=== PATIENT | female | born 1985 | race Caucasian/White ===

== ENCOUNTER 2017-03-07 09:58 | Emergency (ER) | payer MEDICAID, OTHER ==
[~2017-03-07] VITALS: Ht 144.8 cm; Wt 55.5 kg
[2017-03-07 10:20] VITALS: BP 124/74
--- NOTE | 2017-03-07 10:34 | NUR ---
PATIENT PRESENT TO ER C/O VAGINAL BLEED x 8 DAYS. PT STATES BLEEDING STARTED SPOTTING AND GOT WORSE 2 DAYS AGO. PAIN 8/10 LOWER BACK. LMP 01/07/2017. PT STATES SHE 4 WEEKS AND 4 DAYS. PT STATES SHE WAS SEEN AT URGENT CARE FOR THE SPOTTING 2 DAYS AGO.PT ALSO STATES SHE HAS LOWER ABDOMINAL PAIN;MEDS: AND ABX FOR UTI . DENIES N/V/D; SKIN IS PINK/WARM/DRY; AAOX4 WITH EVEN AND STEADY GAIT; LUNGS CLEAR BL; HR EVEN AND REGULAR; PT DENIES ANY FEVER, CP, SOB, OR COUGH AT THIS TIME; PATIENT STATES PAIN OF 8/10 AT THIS TIME;PATIENT POSITIONED FOR COMFORT; HOB ELEVATED; BEDRAILS UP X2; BED DOWN. ER MD MADE AWARE OF PT STATUS.
--- NOTE | 2017-03-07 11:29 | NUR ---
US AT BEDSIDE.
[2017-03-07 11:42] LABS: BASOPHILS # (AUTO) 0.2 K/uL (0.00-0.22); BASOPHILS % (AUTO) 2.9 % (0.0-2.0); EOSINOPHILS # (AUTO) 0.1 K/uL (0-0.4); EOSINOPHILS % (AUTO) 0.8 % (0.0-4.0); HEMATOCRIT 38.3 % (36-48); HEMOGLOBIN 12.6 g/dL (12.0-16.0); LYMPHOCYTES # (AUTO) 1.7 K/uL (2.5-16.5); LYMPHOCYTES % (AUTO) 21.2 % (20.5-51.1); MEAN CORPUSCULAR HEMOGLOBIN 30 pg (27-31); MEAN CORPUSCULAR HGB CONC 33 g/dL (33-37); MEAN CORPUSCULAR VOLUME 90 fL (80-94); MONOCYTES # (AUTO) 0.6 K/uL (0.8-1.0); MONOCYTES % (AUTO) 7.3 % (1.7-9.3); NEUTROPHILS # (AUTO) 5.3 K/uL (1.8-7.7); NEUTROPHILS % (AUTO) 67.8 % (42.2-75.2); PLATELET COUNT (AUTO) 249 K/uL (140-450); RED BLOOD CELL COUNT(AUTO) 4.28 MIL/uL (4.20-5.40); RED CELL DISTRIBUTION WIDTH 13.3 % (11.6-13.7); WHITE BLOOD COUNT (AUTO) 7.9 K/uL (4.8-10.8)
[2017-03-07 11:55] LABS: ANION GAP 12.5 (8-16); CARBON DIOXIDE 26.2 mmol/L (21-32); CREATININE 0.7 mg/dL (0.6-1.3); POTASSIUM 3.7 mmol/L (3.5-5.1)
[2017-03-07 11:57] LABS: PROTHROMBIN TIME 10.3 secs (10.8-13.4)
[2017-03-07 12:09] LABS: ALBUMIN 3.6 g/dL (3.4-5.0); THYROID STIMULATING HORMONE 1.52 uIU/mL (0.34-3.74); TOTAL BILIRUBIN 0.4 mg/dL (0.0-1.0)
--- NOTE | 2017-03-07 12:55 | NUR ---
PT RESTING ON BED;NO ACUTE DISTRESS NOTED;WILL CONTINUE TO MONITOR PT.
[2017-03-07 13:40] VITALS: BP 105/42
--- NOTE | 2017-03-07 13:40 | NUR ---
Patient discharged with v/s stable. Written and verbal after care instructions given and explained. Patient verbalized understanding. Ambulatory with steady gait. All questions addressed prior to discharge. Advised to follow up with PMD/OB.
== END 2017-03-07 13:40 | disposition home or self-care (01) ==
LOC: MED 09:58
DX: O20.0 Threatened abortion (principal); Z3A.01 Less than 8 weeks gestation of pregnancy
CPT/HCPCS: 36415; 76801; 76817; 80053; 81002; 81025; 84443; 84702; 85025; 85610; 85730; 86900; 86901; 99285; Q0092

== ENCOUNTER 2017-09-27 08:39 | Emergency (ER) | payer MEDICAID ==
[~2017-09-27] VITALS: Ht 144.8 cm; Wt 55.8 kg
[2017-09-27 08:45] VITALS: BP 117/82
[2017-09-27 09:50] LABS: BILIRUBIN,URINE NEGATIVE (NEGATIVE); BLOOD, URINE 1+ (NEGATIVE); COLOR,URINE YELLOW (YELLOW); LEUKOCYTE ESTERASE ,URINE NEGATIVE (NEGATIVE); NITRITE, URINE NEGATIVE (NEGATIVE); PH,URINE 7.5 (5.0-9.0); UGLUCOSE NEGATIVE (NEGATIVE)
[2017-09-27 10:01] LABS: APPEARANCE,URINE SLIGHTLY HAZY (CLEAR)
[2017-09-27 10:02] LABS: RBC,URINE 0-5 (RARE) /HPF (0-5); WBC,URINE 0-5 (RARE) /HPF (0-5)
[2017-09-27 10:24] LABS: HEMATOCRIT 38.3 % (36-48); HEMOGLOBIN 12.6 g/dL (12.0-16.0); MEAN CORPUSCULAR HGB CONC 33 g/dL (33-37)
[2017-09-27 10:27] LABS: MEAN CORPUSCULAR HEMOGLOBIN 30 pg (27-31); MEAN CORPUSCULAR VOLUME 92.1 fL (80-94); PLATELET COUNT (AUTO) 245 K/uL (140-450); RED BLOOD CELL COUNT(AUTO) 4.16 MIL/uL (4.20-5.40); RED CELL DISTRIBUTION WIDTH 14.5 % (11.6-13.7); WHITE BLOOD COUNT (AUTO) 5.3 K/uL (4.8-10.8)
[2017-09-27 10:41] LABS: EOSINOPHILS % (MANUAL) 2 % (0-4); LYMPHOCYTES % (MANUAL) 40 % (20-46); MONOCYTES % (MANUAL) 5 % (5-12)
[2017-09-27 12:36] VITALS: BP 114/72
[2017-09-29 06:19] LABS: CHLAMYDIA TRACHOMATIS AMP DNA Negative (Negative)
== END 2017-09-27 12:35 | disposition home or self-care (01) ==
LOC: MED 08:39
DX: O20.9 Hemorrhage in early pregnancy, unspecified (principal)
CPT/HCPCS: 36415; 76801; 81001; 81025; 84702; 85025; 87210; 87491; 99285; Q0092

== ENCOUNTER 2017-10-02 21:53 | Inpatient (IN) | payer MEDICAID, OTHER ==
[~2017-10-02] VITALS: Ht 144.8 cm; Wt 57.6 kg
[2017-10-02 21:58] VITALS: BP 123/77
--- NOTE | 2017-10-02 22:05 | NUR ---
PATIENT PRESENTS TO ED WITH ABDOMINAL PAIN AND VAGINAL BLEEDING X2 DAYS. PT STATES SHE IS 2 WEEKS . C/O BURNING PAIN WITH URINATION AND BLEEDING WHEN SHE URINATES. HEAVY BLEEDING NOTED EVERY TIME SHE USES THE RESTROOM. DENIES N/V/D; SKIN IS PINK/WARM/DRY; AAOX4 WITH EVEN AND STEADY GAIT; LUNGS CLEAR BL; HR EVEN AND REGULAR; PT DENIES ANY FEVER, CP, SOB, OR COUGH AT THIS TIME; VSS; PATIENT POSITIONED FOR COMFORT; HOB ELEVATED; BEDRAILS UP X1; BED DOWN. ER MD MADE AWARE OF PT STATUS.
[2017-10-02] MEDS ORDERED: MORPHINE SULFATE 4 MG/ML SYR IVP ONE (22:20)
[2017-10-02] MEDS ORDERED: NACL 0.9% 1,000 ML IV ONE (22:20)
[2017-10-02 22:48] LABS: MEAN CORPUSCULAR HGB CONC 33 g/dL (33-37)
[2017-10-02 22:52] LABS: BASOPHILS % (AUTO) 0.4 % (0.0-2.0); EOSINOPHILS # (AUTO) 0.1 K/uL (0-0.4); EOSINOPHILS % (AUTO) 0.5 % (0.0-4.0); HEMATOCRIT 33.5 % (36-48); LYMPHOCYTES # (AUTO) 3.7 K/uL (2.5-16.5); LYMPHOCYTES % (AUTO) 27.9 % (20.5-51.1); MEAN CORPUSCULAR HEMOGLOBIN 30 pg (27-31); MEAN CORPUSCULAR VOLUME 90.5 fL (80-94); MONOCYTES # (AUTO) 0.8 K/uL (0.8-1.0); MONOCYTES % (AUTO) 6.3 % (1.7-9.3); NEUTROPHILS # (AUTO) 8.7 K/uL (1.8-7.7); NEUTROPHILS % (AUTO) 64.9 % (42.2-75.2); PLATELET COUNT (AUTO) 277 K/uL (140-450); RED CELL DISTRIBUTION WIDTH 15.2 % (11.6-13.7); WHITE BLOOD COUNT (AUTO) 13.4 K/uL (4.8-10.8)
[2017-10-02 23:01] LABS: ALBUMIN 3.5 g/dL (3.4-5.0); ANION GAP 12.7 (8-16); CARBON DIOXIDE 27.8 mmol/L (21-32); CREATININE 0.7 mg/dL (0.6-1.3); POTASSIUM 3.5 mmol/L (3.5-5.1); TOTAL BILIRUBIN 0.3 mg/dL (0.0-1.0)
[2017-10-02 23:52] LABS: APPEARANCE,URINE SL CLOUDY (CLEAR); BILIRUBIN,URINE NEGATIVE (NEGATIVE); BLOOD, URINE 3+ (NEGATIVE); COLOR,URINE YELLOW (YELLOW); LEUKOCYTE ESTERASE ,URINE NEGATIVE (NEGATIVE); NITRITE, URINE NEGATIVE (NEGATIVE); UGLUCOSE NEGATIVE (NEGATIVE)
--- NOTE | 2017-10-02 23:55 | NUR ---
Pt refused Morphine for pain d/t how it makes her feel. Dr Brownlee notified. Pt states she will notify staff when whe feels she is need for pain intervention. Resting comfortably in bed at this time. VSS. Morphine 4mg/1ml returned to [facility]. Continue to monitor.
[2017-10-03 00:03] LABS: RBC,URINE 3-10 (FEW) /HPF (0-5); WBC,URINE 0-5 (RARE) /HPF (0-5)
--- NOTE | 2017-10-03 01:50 | NUR ---
PT ARRIVED AT UNIT VIA BED, PT AMBULATED TO BED, NO DISTRESS NOTED, TOLERATED WELL, RECEIVED BEDSIDE REPORT FROM CRISTA BROWN, IV TO R AC 18G RUNNING NS @ 100ML/HR, INFUSING WELL, PT ON ROOM AIR NO SOB, FAMILY AT BEDSIDE, ORIENT PT TO ROOM, CALL LIGHT AND PHONE, MRSA SWAB TAKEN, INITIAL ASSESSMENT DONE, ALL SAFETY PRECAUTION MET, WILL CONTINUE TO MONITOR.
--- NOTE | 2017-10-03 01:50 | NUR ---
Report given and care transfered to Hartley RN room 106B. Transported via gurney with vss.
[2017-10-03 02:00] VITALS: BP 107/57
[2017-10-03] MEDS ORDERED: KETOROLAC 30 MG/ML VIAL IM SCH (02:30)
[2017-10-03] MEDS: LACTATED RINGERS 1,000 ML IV SCH ×3 (02:34→18:10)
--- NOTE | 2017-10-03 03:01 | NUR ---
GOMEZ CATH INSERTED PER MD ORDER, PT TOLERATED WELL, NO DISTRESS NOTED, CALL LIGHT WITHIN REACH, WILL CONTINUE TO MONITOR.
--- NOTE | 2017-10-03 04:10 | NUR ---
CHECKED ON PT, PT SLEEPING, NO DISTRESS NOTED, CALL LIGHT WITHIN REACH, WILL CONTINUE TO MONITOR.
[2017-10-03 07:20] LABS: BASOPHILS % (AUTO) 0.3 % (0.0-2.0); EOSINOPHILS % (AUTO) 0.5 % (0.0-4.0); HEMATOCRIT 28.2 % (36-48); HEMOGLOBIN 9.5 g/dL (12.0-16.0); LYMPHOCYTES # (AUTO) 2.5 K/uL (2.5-16.5); LYMPHOCYTES % (AUTO) 31.8 % (20.5-51.1); MEAN CORPUSCULAR HEMOGLOBIN 31 pg (27-31); MEAN CORPUSCULAR HGB CONC 34 g/dL (33-37); MEAN CORPUSCULAR VOLUME 90.6 fL (80-94); MONOCYTES # (AUTO) 0.5 K/uL (0.8-1.0); MONOCYTES % (AUTO) 5.9 % (1.7-9.3); NEUTROPHILS # (AUTO) 4.9 K/uL (1.8-7.7); NEUTROPHILS % (AUTO) 61.5 % (42.2-75.2); PLATELET COUNT (AUTO) 220 K/uL (140-450); RED BLOOD CELL COUNT(AUTO) 3.11 MIL/uL (4.20-5.40); RED CELL DISTRIBUTION WIDTH 15.1 % (11.6-13.7)
--- NOTE | 2017-10-03 07:25 | NUR ---
ENDORSED PLAN OF CARE TO DAY SHIFT NURSE LEVON BROWN, PT STABLE, NO DISTRESS NOTED, CALL LIGHT WITHIN REACH.
--- NOTE | 2017-10-03 07:50 | NUR ---
PATIENT AWAKE, ALERT. RESPIRATION EVEN, UNLABOR ON ROOM AIR. SKIN DRY AND WARM. IV PATENT AND INTACT. COMPLAINED OF PELVIC PAIN 8/10, SHARP, NON RADIATING, WILL MEDICATE PER ORDER. GOMEZ IS DRAINING WELL. VS IS STABLE. PLAN OF CARE WAS DISCUSSED WITH PATIENT. BED AT LOW POSITION, SIDE RAILS UP. CALL LIGHT WITHIN REACH
[2017-10-03 08:00] VITALS: BP 95/51
--- NOTE | 2017-10-03 09:10 | NUR ---
PATIENT AWAKE, ALERT, STATED THAT SHE NO LONGER FEELS THE PELVIC PAIN, THAT THE PAIN SOMETIMES COMES AND GOES. WILL CONTINUE TO MONITOR. Addendum: 10/03/17 at 0911 by Roseanna Vega RN NO VAGINAL BLEEDING SEEN AT THIS TIME
--- NOTE | 2017-10-03 09:53 | NUR ---
PATIENT HAS BEEN SCREENED AND CATEGORIZED LOW NUTRITION RISK. PATIENT WILL BE SEEN WITHIN 7 DAYS OF ADMISSION. 10/09/[address]
--- NOTE | 2017-10-03 11:43 | NUR ---
CM NOTE CHART REVIEW DONE
--- NOTE | 2017-10-03 11:50 | NUR ---
CONSENT WAS SIGNED AT BEDSIDE, BY PATIENT. DR. ROBLERO WAS AT BEDSIDE. PATIENT VERBALIZED UNDERSTANDING RISKS AND BENEFITS.
--- NOTE | 2017-10-03 13:00 | NUR ---
PATIENT WAS TRANSFERRED TO OR FOR PROCEDURE. PATIENT IS STABLE AT THIS TIME
[2017-10-03] MEDS ORDERED: NEOSTIGMINE 1:1000 10 MG/10 ML VIAL ONE (15:00)
[2017-10-03] MEDS ORDERED: KETOROLAC 60 MG/2 ML VIAL IM ONE (15:00)
[2017-10-03] MEDS ORDERED: DESFLURANE 240 ML BTL INH ONE (15:00)
[2017-10-03] MEDS ORDERED: PROPOFOL 200 MG/20 ML VIAL IV ONE (15:00)
[2017-10-03] MEDS ORDERED: ONDANSETRON 4 MG/2 ML VIAL ONE (15:00)
[2017-10-03] MEDS ORDERED: SUCCINYLCHOLINE CHLORIDE 200 MG/10 ML VIAL IVP ONE (15:00)
[2017-10-03] MEDS ORDERED: ROCURONIUM 50 MG/5 ML VIAL IV ONE (15:00)
[2017-10-03] MEDS ORDERED: DEXAMETHASONE 4 MG/ML VIAL ONE (15:00)
[2017-10-03] MEDS ORDERED: GLYCOPYRROLATE 0.2 MG/ML VIAL ONE (15:00)
[2017-10-03] MEDS ORDERED: fentaNYL 0.05 MG/ML VIAL ONE (15:15)
[2017-10-03] MEDS ORDERED: MIDAZOLAM 2 MG/2 ML VIAL ONE (15:15)
[2017-10-03] MEDS ORDERED: MORPHINE SULFATE 4 MG/ML SYR ONE ×2 (15:15→18:31)
[2017-10-03] MEDS ORDERED: METOCLOPRAMIDE 10 MG/2 ML INJ VIAL IVP PRN (16:30)
[2017-10-03] MEDS ORDERED: MORPHINE SULFATE 2 MG/ML SYR IVP PRN (16:30)
[2017-10-03] MEDS ORDERED: MORPHINE SULFATE 4 MG/ML SYR IVP PRN ×3 (16:30→18:25)
[2017-10-03] MEDS ORDERED: MIDAZOLAM 2 MG/2 ML VIAL IV ONE (16:30)
--- NOTE | 2017-10-03 19:10 | NUR ---
PATIENT WAS TRANSFERRED BACK FROM OR. REPORT WAS GIVEN AT BEDSIDE. VS IS TAKEN. IV MED WAS HUNG PER ORDER.
[2017-10-03] MEDS: OXYTOCIN 20 UNITS in LACTATED RINGERS 1,000 ML IV SCH (19:20)
--- NOTE | 2017-10-03 19:21 | NUR ---
ENDORSEMENT GIVEN TO THE ADMINISTRATOR PESTICIDE NURSE. PATIENT IS STABLE AT THIS TIME
--- NOTE | 2017-10-03 19:22 | NUR ---
RECEIVED REPORT FROM DAY SHIFT NURSE ALEC-STEPHANIE. PT RESTING IN BED. RETURNED VIA GURNEY FROM OR. FAMILY AT BEDSIDE. AOX4, ON ROOM AIR WITH IV RIGHT AC #18G. RUPAL DRAIN ON BOTH SIDES, DRESSINGS IN PLACE. GOMEZ CATHETER IN PLACE. DISCUSSED PLAN OF CARE AND PT VERBALIZED UNDERSTANDING. WHITE BOARD UPDATED. BED IN LOWEST POSITION, BED BREAKS LOCKED. BED SIDE TABLE AND CALL LIGHT WITHIN REACH. WILL CONTINUE TO MONITOR.
--- NOTE | 2017-10-03 20:00 | NUR ---
VITAL SIGNS STABLE. EDUCATED PT ON PITOCIN. PT REQUESTING PAIN MEDICATION 11/20.
[2017-10-03] MEDS: KETOROLAC 30 MG/ML VIAL IVP PRN (20:08)
--- NOTE | 2017-10-03 22:00 | NUR ---
PT SLEEPING AT THIS TIME. AT BEDSIDE. WILL CONTINUE TO MONITOR.
[2017-10-04] VITALS: BP 102/60
--- NOTE | 2017-10-04 | NUR ---
PT SLEEPING AT THIS TIME. WILL CONTINUE TO MONITOR.
--- NOTE | 2017-10-04 02:00 | NUR ---
NEW IV STARTED ON RIGHT AC #22G BY CHARGE NURSE MEGAN. PT TOLERATED WELL. IV RIGHT AC D/C BECAUSE PT WAS EXPERIENCING PAIN AND NUMBNESS. WILL CONTINUE TO MONITOR.
[2017-10-04] MEDS: LACTATED RINGERS 1,000 ML IV SCH ×4 (02:10→22:00)
[2017-10-04] MEDS: OXYTOCIN 20 UNITS in LACTATED RINGERS 1,000 ML IV SCH ×3 (02:24→10:25)
--- NOTE | 2017-10-04 04:00 | NUR ---
PT SLEEPING AT THIS TIME. NO S/S OF RESPIRATORY DISTRESS OR DISCOMFORT AT THIS TIME. WILL CONTINUE TO MONITOR.
--- NOTE | 2017-10-04 06:00 | NUR ---
PT CONTINUES TO SLEEP. WILL CONTINUE TO MONITOR.
--- NOTE | 2017-10-04 07:10 | NUR ---
ENDORSED PT CARE TO DAY SHIFT NURSE MAXIMO FOR CONTINUITY OF CARE. PT IN STABLE CONDITION AT THIS TIME.
--- NOTE | 2017-10-04 07:11 | NUR ---
RECEIVED REPORT FROM UTILITY AIRCREWMAN NURSE. PATIENT LYING DOWN IN BED COMFORTABLY. NO DISTRESS NOTED. COMPLAINTS OF 6/10 INCISION PAIN, WILL MEDICATE WITH PAIN MEDICATION PER ORDERS. RESPIRATIONS EVEN, UNLABORED, ON ROOM AIR. AAOX4, CALM, COOPERATIVE, SKIN COLOR APPROPRIATE TO ETHNICITY, WARM TO TOUCH. HAS RUPAL DRAINS ON LEFT AND RIGHT SIDE OF ABDOMEN THAT IS DRAINING SEROSANGUINOUS FLUID. HAS SURGICAL WOUND ON ABDOMINAL AREA S/P EXPLORATORY LAPAROTOMY/ECTOPIC EVACUATION, DRESSING IS DRY AND INTACT. LUNGS CTA ON ALL LOBES. IV SITE INTACT, PATENT AND INFUSING IVF PER ORDERS. GOMEZ CATHETER IN PLACE, DRAINING CLEAR YELLOW URINE. REVIEWED PLAN OF CARE WITH PATIENT. PATIENT VERBALIZED UNDERSTANDING. SAFETY MEASURES IN PLACE, CALL LIGHT WITHIN REACH. WILL CONTINUE TO MONITOR.
[2017-10-04 07:59] LABS: BASOPHILS % (AUTO) 0.2 % (0.0-2.0); EOSINOPHILS % (AUTO) 0.1 % (0.0-4.0); HEMATOCRIT 26.8 % (36-48); HEMOGLOBIN 9.1 g/dL (12.0-16.0); LYMPHOCYTES # (AUTO) 1.8 K/uL (2.5-16.5); LYMPHOCYTES % (AUTO) 17.1 % (20.5-51.1); MEAN CORPUSCULAR HEMOGLOBIN 31 pg (27-31); MEAN CORPUSCULAR HGB CONC 34 g/dL (33-37); MEAN CORPUSCULAR VOLUME 90.5 fL (80-94); MONOCYTES # (AUTO) 0.7 K/uL (0.8-1.0); MONOCYTES % (AUTO) 6.3 % (1.7-9.3); NEUTROPHILS # (AUTO) 7.9 K/uL (1.8-7.7); NEUTROPHILS % (AUTO) 76.3 % (42.2-75.2); PLATELET COUNT (AUTO) 215 K/uL (140-450); RED BLOOD CELL COUNT(AUTO) 2.97 MIL/uL (4.20-5.40); RED CELL DISTRIBUTION WIDTH 15.4 % (11.6-13.7); WHITE BLOOD COUNT (AUTO) 10.3 K/uL (4.8-10.8)
[2017-10-04 08:00] VITALS: BP 97/55
[2017-10-04] MEDS: KETOROLAC 30 MG/ML VIAL IVP PRN ×3 (08:26→23:51)
--- NOTE | 2017-10-04 08:30 | NUR ---
PATIENT COMPLAINTS OF PAIN ON SURGICAL SITES, TORADOL GIVEN PER ORDERS. SAFETY MEASURES IN PLACE, CALL LIGHT WITHIN REACH. WILL CONTINUE TO MONITOR.
--- NOTE | 2017-10-04 10:10 | NUR ---
PATIENT LYING IN BED SLEEPING, AROUSABLE BY VOICE. GOMEZ CATHETER REMOVED DUE TO 1800 ML OUTPUT OF URINE OVERNIGHT AND ALLOWED TO PULL OUT GOMEZ CATHETER IF OUTPUT >600 ML PER MD ORDERS. PATIENT TOLERATED PROCEDURE WELL. PAIN WITHIN TOLERABLE AT THIS TIME. SAFETY MEASURES IN PLACE, CALL LIGHT WITHIN REACH. WILL CONTINUE TO MONITOR.
--- NOTE | 2017-10-04 14:46 | NUR ---
PATIENT WANTED TO AMBULATE TO BATHROOM. ASSISTED PATIENT AMBULATE FROM BED TO BATHROOM WITH ASSISTING ALSO. PATIENT ABLE TO AMBULATE FROM BED TO BATHROOM SAFELY. FROM BATHROOM AND BACK TO BED. PATIENT FELT DIZZINESS AND HAD TO FALL TO HER KNEES SLOWLY WITH ASSISTING HER IN BATHROOM WHEN PATIENT TRIED TO GET UP FROM TOILET SEAT. INSTRUCTED PATIENT TO TAKE A REST ON THE TOILET SEAT AND TAKE DEEP BREATHS. PATIENT THEN ABLE TO GET UP FROM BATHROOM AND BACK TO BED WITH 2 PERSON ASSIST. THERE WAS A MILD BLOOD CLOT IN URINE IN TOILET. SAFETY MEASURES IN PLACE, CALL LIGHT WITHIN REACH. IVF RUNNING PER ORDERS. WILL CONTINUE TO MONITOR.
[2017-10-04 16:00] VITALS: BP 104/61
--- NOTE | 2017-10-04 16:03 | NUR ---
PATIENT COMPLAINTS OF 6/10 ABDOMINAL INCISION PAIN, MEDICATED WITH TORADOL PER ORDERS. PATIENT'S FAMILY MEMBERS AT BEDSIDE. NO DISTRESS NOTED. SAFETY MEASURES IN PLACE, CALL LIGHT WITHIN REACH. WILL CONTINUE TO MONITOR.
--- NOTE | 2017-10-04 17:00 | NUR ---
PATIENT AMBULATED TO BATHROOM AND BACK TO BED WITH ASSISTANCE OF NURSE AND . NO BLOOD CLOTS NOTED IN URINE. SAFETY MEASURES IN PLACE, CALL LIGHT WITHIN REACH. WILL CONTINUE TO MONITOR.
--- NOTE | 2017-10-04 17:57 | NUR ---
PATIENT SITTING IN BED WITH DINNER TRAY AT BEDSIDE. NO DISTRESS NOTED. PAIN WITHIN TOLERABLE. DENIES ANY NAUSEA/VOMITING. CONTINUING TO PASS GAS AND BURP. WILL CONTINUE TO MONITOR.
--- NOTE | 2017-10-04 18:39 | NUR ---
RUPAL DRAIN A (RIGHT SIDE): 5 ML SEROSANGUINOUS, B (LEFT SIDE): 20 ML SEROSANGUINOUS. PATIENT TOLERATED PROCEDURE WELL. WILL CONTINUE TO MONITOR.
--- NOTE | 2017-10-04 19:25 | NUR ---
GAVE REPORT TO INTERFACE CONTROL OFFICER NURSE FOR CONTINUITY OF CARE. PATIENT IN STABLE CONDITION.
--- NOTE | 2017-10-04 21:04 | NUR ---
DR. ROBLERO SAW PT. USED METAL NECKLACE TO HANG RUPAL DRAINS AND UNDERWEAR TO SECURE RUPAL DRAINS. PT STRUGGLED TO HELP HERSELF UP AND IN BED. DR. ROBLERO SUGGESTS PT NEEDS TO STAY IN HOSPITAL AND WILL ASSESS HER TOMORROW. PT NEEDS TEACHING ON HOW TO DRAIN RUPAL HERSELF. EDUCATED PT ON HOW TO USE INCENTIVE SPIROMETER REACHING 1500ML. EXPLAINED SHE NEEDS TO USE IT EVERY HOUR. WILL CONTINUE TO MONITOR.
--- NOTE | 2017-10-04 23:40 | NUR ---
ASSISTED PT TO THE BATHROOM. PT URINATED, YELLOW, CLEAR WITH NORMAL SMELL. PT STATED PAIN 6/10 WANTING PAIN MEDICATION. WILL MEDICATE.
[2017-10-05] VITALS: BP 108/57
--- NOTE | 2017-10-05 00:49 | NUR ---
PT SLEEPING AT THIS TIME. NO S/S OF RESPIRATORY DISTRESS OR DISCOMFORT NOTED AT THIS TIME. WILL CONTINUE TO MONITOR.
--- NOTE | 2017-10-05 02:00 | NUR ---
PT SLEEPING AT THIS TIME. WILL CONTINUE TO MONITOR.
--- NOTE | 2017-10-05 04:00 | NUR ---
PT CONTINUES TO SLEEP AT THIS TIME. WILL CONTINUE TO MONITOR.
[2017-10-05] MEDS: LACTATED RINGERS 1,000 ML IV SCH ×2 (06:00→18:46)
--- NOTE | 2017-10-05 06:00 | NUR ---
PT CONTINUES TO SLEEP AT THIS TIME. WILL CONTINUE TO MONITOR.
--- NOTE | 2017-10-05 07:10 | NUR ---
ENDORSED PT CARE TO DAY SHIFT NURSE ARNULFO FOR CONTINUITY OF CARE. PT IN STABLE CONDITION AT THIS TIME.
--- NOTE | 2017-10-05 07:10 | NUR ---
RECEIVED REPORT FROM NIGHTSHIFT NURSE AT BEDSIDE. PATIENT ALERT AND ORIENTED X4. PATIENT DOES NOT COMPLAIN OF PAIN. PATIENT'S DRESSING ON ABDOMEN IS DRY AND INTACT. REJI ODONNELL TUBE A AND B HAVE BEEN EMPTIED. NOTED HOW MUCH DRAINAGE NIGHTSHIFT NURSE EMPTIED. PATIENT SHOWS NO SIGNS OF RESPIRATORY DISTRESS OR RESPIRATORY DEPRESSION. PATIENT IV SITE ON LEFT AC 22 G RUNNING LACTATED RINGERS AT 125 ML/HR. PUT CALL LIGHT WITHIN REACH OF PATIENT. INSTRUCTED PATIENT TO CALL IF SHE NEEDS HELP AMBULATING. UPDATED BOARD IN PATIENT'S ROOM. WILL CONTINUE TO MONITOR PATIENT.
[2017-10-05 08:00] VITALS: BP 98/54
[2017-10-05] MEDS ORDERED: BISACODYL 5 MG TABEC PO PRN (08:00)
[2017-10-05] MEDS ORDERED: SODIUM PHOSPHATE 118 ML ENEM RC PRN (08:00)
[2017-10-05] MEDS ORDERED: DOCUSATE SODIUM 100 MG GELCAP PO PRN (08:00)
[2017-10-05] MEDS ORDERED: SIMETHICONE 80 MG TAB.CHEW PO PRN (08:00)
--- NOTE | 2017-10-05 09:34 | NUR ---
PATIENT AWAKE AT THIS TIME IN HIGH [place] POSITION. PATIENT'S FAMILY MEMBER AT BEDSIDE. PATIENT DOES NOT COMPLAIN OF ANY PAIN OR ANY RESPIRATORY DISTRESS. NO RESPIRATORY DEPRESSION NOTED. WILL CONTINUE TO MONITOR PATIENT.
--- NOTE | 2017-10-05 11:30 | NUR ---
PATIENT RESTING AT THIS TIME. NO COMPLAINTS OF PAIN. WILL CONTINUE TO MONITOR PATIENT.
[2017-10-05] MEDS: oxyCODONE/APAP 5/325 MG 1 TAB TAB PO PRN ×2 (12:24→19:53)
--- NOTE | 2017-10-05 13:07 | NUR ---
PATIENT SITTING ON SIDE OF BED. PATIENT FAMILY MEMBER AT BEDSIDE. PATIENT DOES NOT COMPLAIN OF PAIN AT THIS TIME. PATIENT REQUESTED SOUP FOR DINNER. CALLED [facility] TO REQUEST PATIENT'S FOOD. WILL CONTINUE TO MONITOR PATIENT.
--- NOTE | 2017-10-05 14:55 | NUR ---
PATIENT ASLEEP AT THIS TIME. NO SIGNS OF PAIN. NO DISTRESS NOTED. WILL CONTINUE TO MONITOR PATIENT.
[2017-10-05 16:33] VITALS: BP 97/57
--- NOTE | 2017-10-05 16:35 | NUR ---
PATIENT FAMILY AT BEDSIDE. NO COMPLAINTS OF PAIN. PATIENT SHOWS NO SIGNS OF RESPIRATORY DISTRESS OR RESPIRATORY DEPRESSION. WILL CONTINUE TO MONITOR PATIENT.
--- NOTE | 2017-10-05 19:30 | NUR ---
GAVE REPORT TO NIGHTSHIFT NURSE AT BEDSIDE. PATIENT IN STABLE CONDITION
--- NOTE | 2017-10-05 19:31 | NUR ---
RECEIVED BEDSIDE REPORT FROM DAY SHIFT NURSE TOMAS RN, PT STABLE, NO DISTRESS NOTED, IV TO LAC 22G RUNNING LR @ 125ML/HR, INFUSING WELL, PT ON ROOM AIR NO SOB, DRESSING INTACT, RUPAL DRAINS INTACT, INITIAL ASSESSMENT DONE, ALL SAFETY PRECAUTION MET, WILL CONTINUE TO MONITOR.
--- NOTE | 2017-10-05 19:53 | NUR ---
PT C/O PAIN 12/20, PERCOCET GIVEN, PT TOLERATED WELL, NO DISTRESS NOTED, CALL LIGHT WITHIN REACH, WILL CONTINUE TO MONITOR.
--- NOTE | 2017-10-05 20:10 | NUR ---
DR. ROBLERO AT BEDSIDE, STATED PT SHOULD NO LONGER BE ON FLUIDS, WILL D/C FLUIDS, STATED TO ADMINISTER ENEMA FOR PT, WILL CONTINUE WITH DR. SAGE. PT STABLE, NO DISTRESS NOTED, BY BEDSIDE, WILL CONTINUE TO MONITOR.
--- NOTE | 2017-10-05 22:26 | NUR ---
FLEET ENEMA ADMINISTERED TO PT, PT THEN IMMEDIATELY WENT TO RESTROOM AND DID A BM, PT WENT BACK TO BED, NO DISTRESS NOTED, STABLE, CALL LIGHT WITHIN REACH, WILL CONTINUE TO MONITOR.
[2017-10-05] MEDS: IBUPROFEN 600 MG TAB PO PRN (23:56)
[2017-10-06] VITALS: BP 109/70
--- NOTE | 2017-10-06 00:02 | NUR ---
CHECKED ON PT, PT SLEEPING, NO DISTRESS NOTED, CALL LIGHT WITHIN REACH, WILL CONTINUE TO MONITOR.
--- NOTE | 2017-10-06 03:21 | NUR ---
CHECKED ON PT, PT SLEEPING, NO DISTRESS NOTED, CALL LIGHT WITHIN REACH, WILL CONTINUE TO MONITOR.
--- NOTE | 2017-10-06 07:18 | NUR ---
ENDORSED PLAN OF CARE TO DAY SHIFT NURSE ALMAZ BROWN, PT STABLE, NO DISTRESS NOTED, CALL LIGHT WITHIN REACH.
--- NOTE | 2017-10-06 07:21 | NUR ---
ENDALICE PLAN OF CARE TO DAY SHIFT NURSE CHERRY BROWN, PT STABLE, NO DISTRESS NOTED, CALL LIGHT WITHIN REACH. Addendum: 10/06/17 at 0736 by Corrine Ortega RN [facility] PT
--- NOTE | 2017-10-06 07:22 | NUR ---
RECEIVED REPORT FROM STEAMER BLOCKER NURSE, PT IS AAOX4, AMBULATES WITH ASSIST, PT HAS IV ON HER LEFT FA, PATENT, INTACT, FLUSHING WELL, NO S/S OF RESPIRATORY DISTRESS OR DISCOMFORT NOTED, PT IS S/P EXP. LAP ON 10/04/17, PT HAS RUPAL DRAIN ON LEFT AND RIGHT SIDE OF ABDOMEN, A DRAIN HAD MINIMAL SEROSANGUINEOUS DRAINAGE, B DRAIN HAD 5 ML SEROSANGUINEOUS DRAINAGE. DISCUSSED PLAN OF CARE WITH PT, PT VERBALIZED UNDERSTANDING, SAFETY/FALL PRECAUTIONS ARE IN PLACE, CALL LIGHT WITHIN REACH, WILL CONTINUE TO MONITOR.
[2017-10-06 08:00] VITALS: BP 99/63
[2017-10-06] MEDS: IBUPROFEN 600 MG TAB PO PRN (08:33)
--- NOTE | 2017-10-06 09:00 | NUR ---
PATIENT IS RESTING IN BED, CALL LIGHT WITHIN REACH.
--- NOTE | 2017-10-06 10:30 | NUR ---
DR. ROBLERO HERE TO SEE PATIENT. PER DR. ROBLERO DO NOT REMOVE ABDOMINAL DRESSING TODAY, HE WILL REMOVED THE DRESSING ONCE PT FOLLOWS UP IN HIS OFFICE ON OCTOBER 11. PT VERBALIZED UNDERSTANDING. PATIENT'S FAMILY IS AT BEDSIDE.
--- NOTE | 2017-10-06 11:15 | NUR ---
DISCHARGE INSTRUCTIONS GIVEN, PATIENT TEACHING GIVEN ON HOW TO EMPTY RUPAL DRAIN. IV REMOVED, CATHETER TIP INTACT, ID WRIST BAND REMOVED.
--- NOTE | 2017-10-06 11:40 | NUR ---
PT STABLE UPON DISCHARGE ACCOMPANIED BY HER .
== END 2017-10-06 11:40 | disposition home or self-care (01) | DRG 545 ==
LOC: MED 21:53 → MTU 10-03 01:09
PROVIDERS: ADMIT Obstetrics & Gynecology; ATTEND Obstetrics & Gynecology
PROC: 0DNW0ZZ Release Peritoneum, Open Approach (ICD-10-PCS; 2017-10-03)
PROC: 10T20ZZ Resection of Products of Conception, Ectopic, Open Approach (ICD-10-PCS; principal; 2017-10-03 13:00)
DX: O00.00 Abdominal pregnancy without intrauterine pregnancy (principal); D62 Acute posthemorrhagic anemia; Z98.891 History of uterine scar from previous surgery
CPT/HCPCS: 36415; 76801; 80053; 81001; 84702; 85025; 86900; 86901; 87081; 87086; 88305; 96360; 96361; 99291; J0330; J1100; J1885; J2250; J2270; J2405; J2590; J2704; J2710; J3010; J3490; J7030; J7120; Q0092

== ENCOUNTER 2020-06-04 21:47 | Emergency (ER) | payer MEDICAID, OTHER ==
[~2020-06-04] VITALS: Ht 144.8 cm; Wt 58.1 kg
[2020-06-04 22:01] VITALS: BP 121/74
--- NOTE | 2020-06-04 22:10 | NUR ---
PT SEEN AND EVAUALTED BY GRECIA DOMINGUEZ. NO NURSING CARE PROVIDED
[2020-06-04 22:37] LABS: BASOPHILS # (AUTO) 0.1 K/uL (0.00-0.22); BASOPHILS % (AUTO) 0.6 % (0.0-2.0); EOSINOPHILS # (AUTO) 0.1 K/uL (0-0.4); EOSINOPHILS % (AUTO) 0.7 % (0.0-4.0); HEMATOCRIT 40.4 % (36-48); HEMOGLOBIN 13.3 g/dL (12.0-16.0); LYMPHOCYTES # (AUTO) 2.4 K/uL (2.5-16.5); LYMPHOCYTES % (AUTO) 23.4 % (20.5-51.1); MEAN CORPUSCULAR HEMOGLOBIN 29 pg (27-31); MEAN CORPUSCULAR HGB CONC 33 g/dL (33-37); MEAN CORPUSCULAR VOLUME 88.7 fL (80-94); MONOCYTES # (AUTO) 0.5 K/uL (0.8-1.0); MONOCYTES % (AUTO) 5.2 % (1.7-9.3); NEUTROPHILS # (AUTO) 7.1 K/uL (1.8-7.7); NEUTROPHILS % (AUTO) 70.1 % (42.2-75.2); PLATELET COUNT (AUTO) 299 K/uL (140-450); RED BLOOD CELL COUNT(AUTO) 4.56 MIL/uL (4.20-5.40); RED CELL DISTRIBUTION WIDTH 15.8 % (11.6-13.7); WHITE BLOOD COUNT (AUTO) 10.2 K/uL (4.8-10.8)
[2020-06-04 23:32] VITALS: BP 132/74
[2020-06-04 23:36] LABS: APPEARANCE,URINE SL CLOUDY (CLEAR); BILIRUBIN,URINE NEGATIVE (NEGATIVE); BLOOD, URINE 2+ (NEGATIVE); COLOR,URINE YELLOW (YELLOW); LEUKOCYTE ESTERASE ,URINE TRACE (NEGATIVE); NITRITE, URINE NEGATIVE (NEGATIVE); PH,URINE 5.5 (5.0-9.0); UGLUCOSE NEGATIVE (NEGATIVE)
[2020-06-04 23:59] LABS: RBC,URINE 0-5 /HPF (0-5)
[2020-06-05] LABS: CALCIUM OXALATE CRYSTALS,UR 0-5 /HPF (None Seen); WBC,URINE 16-25 (MOD) /HPF (0-5)
== END 2020-06-05 00:10 | disposition home or self-care (01) ==
LOC: MED 21:47
DX: O23.41 Unspecified infection of urinary tract in pregnancy, first trimester (principal); Z3A.09 9 weeks gestation of pregnancy
CPT/HCPCS: 36415; 76817; 81001; 81025; 84702; 85025; 86900; 86901; 87086; 99284

== ENCOUNTER 2020-06-14 10:02 | Emergency (ER) | payer MEDICAID ==
[~2020-06-14] VITALS: Ht 157.5 cm; Wt 59.0 kg
[2020-06-14 10:05] VITALS: BP 111/70
--- NOTE | 2020-06-14 10:14 | NUR ---
NO BEDS AVAILABLE AT THIS TIME, PATIENT INSTRUCTED TO WAIT IN LOBBY
--- NOTE | 2020-06-14 10:16 | NUR ---
34 Y/O FEMALE PT STATES SHE HAS BEEN INSERTING PROGESTERONE SUPPOSITORIES (TO KEEP ), AND THIS MORNING AFTER INSERTION SHE BEGAN BLEEDING A MILD AMOUNT, AND IS BLEEDING WITH URINATION NOW ALSO. DENIES ANY CRAMPING. STATES SHE DOES HAVE DYSURIA. PT STATES SHE WAS DX WITH A UTI ABOUT 2 WEEKS AGO AND IS STILL ON ANTIBX. NO PMH NKDA
[2020-06-14 11:05] VITALS: BP 111/70
--- NOTE | 2020-06-14 11:05 | NUR ---
Patient discharged with v/s stable. Written and verbal after care instructions given and explained. Patient verbalized understanding. Ambulatory with steady gait. All questions addressed prior to discharge. Advised to follow up with PMD.
== END 2020-06-14 11:05 | disposition home or self-care (01) ==
LOC: MED 10:02
DX: O20.8 Other hemorrhage in early pregnancy (principal); Z3A.08 8 weeks gestation of pregnancy
CPT/HCPCS: 99281

== ENCOUNTER 2022-04-26 13:51 | Emergency (ER) | payer SELFPAY ==
[~2022-04-26] VITALS: Ht 144.8 cm; Wt 60.8 kg
[2022-04-26 13:56] VITALS: BP 142/83
--- NOTE | 2022-04-26 14:08 | NUR ---
PT AMBULATED TO BED 7
[2022-04-26] MEDS ORDERED: MORPHINE SULFATE 2 MG/ML SYR IM STA (16:12)
[2022-04-26 16:32] LABS: BASOPHILS % (AUTO) 0.3 % (0.0-2.0); EOSINOPHILS # (AUTO) 0.1 K/uL (0-0.4); EOSINOPHILS % (AUTO) 0.6 % (0.0-4.0); HEMATOCRIT 46.7 % (36-48); LYMPHOCYTES # (AUTO) 2.5 K/uL (2.5-16.5); MEAN CORPUSCULAR HEMOGLOBIN 32 pg (27-31); MEAN CORPUSCULAR HGB CONC 34 g/dL (33-37); MEAN CORPUSCULAR VOLUME 93.4 fL (80-94); MONOCYTES # (AUTO) 0.6 K/uL (0.8-1.0); MONOCYTES % (AUTO) 5.9 % (1.7-9.3); NEUTROPHILS # (AUTO) 7.5 K/uL (1.8-7.7); NEUTROPHILS % (AUTO) 70.2 % (42.2-75.2); PLATELET COUNT (AUTO) 270 K/uL (140-450); RED CELL DISTRIBUTION WIDTH 13.3 % (11.6-13.7); WHITE BLOOD COUNT (AUTO) 10.7 K/uL (4.8-10.8)
[2022-04-26 17:05] LABS: ALBUMIN 2.7 g/dL (3.4-5.0); ANION GAP 11.9 (8-16); ASPARTATE AMINOTRANSFERASE 23 U/L (15-37); CARBON DIOXIDE 25.5 mmol/L (21-32); CHLORIDE 105 mmol/L (98-107); CREATININE 0.8 mg/dL (0.6-1.3); GFR ARICAN-AMERICAN 103 mL/min (>90); GLUCOSE 84 mg/dL (74-106); LIPASE 78 U/L (73-393); POTASSIUM 4.4 mmol/L (3.5-5.1); SODIUM SERUM 138 mmol/L (136-145); TOTAL BILIRUBIN 0.3 mg/dL (0.0-1.0); UREA NITROGEN, BLOOD 13 mg/dL (7-18)
[2022-04-26] MEDS ORDERED: ONDA-188 PO (17:39)
[2022-04-26] MEDS ORDERED: ACET-9527 PO (17:39)
[2022-04-26 17:59] VITALS: BP 129/78
== END 2022-04-26 18:00 | disposition home or self-care (01) ==
LOC: MED 13:51
DX: N98.1 Hyperstimulation of ovaries (principal)
CPT/HCPCS: 36415; 76856; 80053; 81002; 81025; 83690; 85025; 96372; 99284; J2270; Q0092